=== PATIENT | female | born 1940 | race American Indian/Alaskan Native ===

== ENCOUNTER 2017-11-26 10:57 | Emergency (ER) | payer MEDICARE ==
--- NOTE | 2017-11-26 11:09 | ED PDOC ---
Arrival/HPI - General Time Seen by Provider: 11/26/17 11:04 Historian: EMS - History of Present Illness Narrative History of Present Illness (Text): 11/26/17 10:53 A 75 year old female, whose past medical history includes hypertension, hyperlipidemia, COPD, GERD, and Tubal ligation, is brought in by EMS for cardiac arrest. Per EMS, son and reported patient was found unconsciousness in bathroom and called 911 immediately. Family was uncertain whether patient fell or not but they heard a thumb. Patient was also found to have blood around nares that EMS says could have been from intubation but they are unsure if it was from trauma. EMS says CPR was already in progress on arrival. They gave a total of 6 epi's and regained pulse at one point but arrived in ED with continued CPR in progress.. Limited HPI and ROS due to patient unconscious still and not enough information given by family. Also, patient's son currently on his way to the ER. No PMD Past Medical History - Provider Review Nursing Documentation Reviewed: Yes - Cardiac Hx Hyperlipemia: Yes Hx Hypertension: Yes - Pulmonary Hx Chronic Obstructive Pulmonary Disease (COPD): Yes - Gastrointestinal Hx Gastroesophageal Reflux: Yes - Psychiatric Hx Depression: No Hx Emotional Abuse: No Hx Physical Abuse: No - Surgical History Hx Tubal Ligation: Yes - Suicidal Assessment Feels Threatened In Home Enviroment: No Family/Social History - Physician Review Nursing Documentation Reviewed: Yes Family/Social History: No Known Family HX Allergies/Home Meds Allergies/Adverse Reactions: Allergies No Known Allergies Allergy (Verified 12/19/13 12:12) Home Medications: Home Meds Medication Instructions Recorded Confirmed Aspirin 81 mg PO DAILY 12/19/13 12/19/13 Atorvastatin [Lipitor] 10 mg PO DIN 12/19/13 12/19/13 Insulin Glargine, Recombinan 100 unit SC HS 12/19/13 12/19/13 [Lantus] Insulin Lispro [humALOG] 20 units SC TID 12/19/13 12/19/13 Lansoprazole [Prevacid] 30 mg PO DAILY 12/19/13 12/19/13 Metoprolol Tartrate 200 mg PO BID 12/19/13 12/19/13 Pregabalin [Lyrica] 100 mg PO BID 12/19/13 12/19/13 Sitagliptin Phos/Metformin HCl 1 tab PO BID 12/19/13 12/19/13 [Janumet Xr 1000 mg-50 mg] Telmisartan/Hydrochlorothiazid 1 tab PO HS 12/19/13 12/19/13 [Micardis Hct 25 mg-80 mg] Tolterodine [Detrol LA] 4 mg PO DAILY 12/19/13 12/19/13 Review of Systems - Review of Systems Systems not reviewed;Unavailable: Other (patient currently unconscious and not enough information available at this time) Physical Exam - Systems Exam Head: Present: Normocephalic. No: Atraumatic Pupils: Present: Non-Reactive, Other (4 mm dilated and fixed) Conjunctiva: Present: Normal Ears: Present: Normal, NORMAL TM Nose (External): Present: Atraumatic Nose (Internal): Present: Other (blood in nare(s)) Respiratory/Chest: Present: Rhonchi (with BVM b/l) Cardiovascular: Present: Irregular Rhythm, Bradycardic Abdomen: No: Tenderness, Distention Genitourinary/Pelvic Exam: Present: Normal External Genitalia Back: Present: Normal Inspection Upper Extremity: Present: Normal Inspection Lower Extremity: Present: Edema Neurological: Present: Other (unresponsive to pain or verbal stimuli). No: Speech Normal, Motor Func Grossly Intact, Normal Sensory Function Medical Decision Making ED Course and Treatment: 11/26/17 11:05 Impression: 77 year old female brought in for cardiac arrest. Differential Diagnosis included but are not limited to: Cardiac Arrest; Report of fall r/o ICH r/o Fracture; Glucose elevated r/o DKA; Sepsis Plan: -- EKG -- Chest X-ray -- Labs -- Venous Blood Gas -- IV Fluids -- Blood Culture -- Urine Culture -- Urinalysis -- Serology -- Reassess and disposition Progress Notes: 11/26/2017 10:53 Patient arrives here in ER with CPR in progress. 2 rounds of epi given and regained femoral and carotid pulses. Good breathe sounds with rhonchi b/l with BVM; mildly decreased on left so moved ETT to 21 at lip by therapist. Good IV access obtained by EMS and in the ED. Patient lost pulse again and 1 round of epi given. Pulse regained. 11/26/2017 11:09 Patient's heart rate began going down to 50s BPM. No pulse appreciated. Epi is given. 1 minute compressions are performed. Pulses present after 1 minute of compressions. 11/26/2017 11:24 Chest X-ray IMPRESSION: There is moderate vascular congestion with a perihilar infiltrate consistent with CHF. The endotracheal tube is in satisfactory position. Dictator: Fabrice Belcher MD 11/26/2017 11:28 Patient's heart rate continued to go down into bradycardic. BP dropped to 70 systolic. CPR was initiated and epi x 1 was given. Patient had no regain of pulse. Ultrasound showed no cardiac activity. EMS had worked on patient in the field already for about 30-40 minutes with 6 epi's given. Further treatment is futile at this point. Patient has no gag reflex and pupils are fixed and dilated. Patient has no PMD. Time of 11:28. ME and Organ Donation called by RN. EKG at 11:07 - Sinus Hollis at 55 bpm with nonspecific intraventricular block EKG at 11:20 - Sinus Hollis at 52 bpm with nonspecific intraventricular block 11/26/17 12:07 Maliha Chanel, son, arrived to the ED with . Son states that he spoke to his mother this morning and she was complaining of feeling hot all over. Then he received a call saying she was going to the hospital. Son was informed of her and was given time to ask questions. PMD is Dr. Melton. 11/26/17 12:13 certificate started. Discussed case with Dr. Melton who was informed that she and time of . He will complete the certificate. - Critical Care Critical Care Minutes: 60 minutes - RAD Interpretation Radiology Orders: 11/26/17 11:05 CHEST PORTABLE [RAD] Stat - Medication Orders Current Medication Orders: Sodium Chloride (Sodium Chloride 0.9%) 1,000 mls @ 150 mls/hr IV .[id number] FRANSISCO - Scribe Statement The provider has reviewed the documentation as recorded by the Keziaibraina Delacruz Provider Scribe Attestation: All medical record entries made by the Scribe were at my direction and personally dictated by me. I have reviewed the chart and agree that the record accurately reflects my personal performance of the history, physical exam, medical decision making, and the department course for this patient. I have also personally directed, reviewed, and agree with the discharge instructions and disposition. Disposition/Present on Arrival - Present on Arrival Any Indicators Present on Arrival: No History of DVT/PE: No History of Uncontrolled Diabetes: No Urinary Catheter: No History Surgical Site Infection Following: None - Disposition Have Diagnosis and Disposition been Completed?: Yes Diagnosis: Cardiac arrest Disposition: WITH WITHOUT AUTOPSY Disposition Time: 11:28 Patient Problems: Current Active Problems Problem Status Onset Cardiac arrest Acute Condition: [facility] - Follow up with primary
[2017-11-26] MEDS ORDERED: Sodium Chloride 0.9% 1,000 ML IV SCH (11:15)
--- NOTE | 2017-11-26 11:26 | RAD ---
HISTORY: Sepsis Patient COMPARISON: 12/19/2013 FINDINGS: LUNGS: There is moderate vascular congestion with a perihilar infiltrate consistent with CHF. The endotracheal tube is in satisfactory position PLEURA: No significant pleural effusion identified, no pneumothorax apparent. CARDIOVASCULAR: Normal. OSSEOUS STRUCTURES: No significant abnormalities. VISUALIZED UPPER ABDOMEN: Normal. OTHER FINDINGS: None. IMPRESSION: There is moderate vascular congestion with a perihilar infiltrate consistent with CHF. The endotracheal tube is in satisfactory position
[2017-11-26] MEDS ORDERED: NOREPINEPHRINE BIT/0.9 % NACL 4 MG/250 ML BAG IV ONE (11:27)
[2017-11-26 12:21] VITALS: BMI 47.0
[2017-11-26 12:22] VITALS: BP 145/107; PULSE 86; RESP 16; O2SAT 996
--- NOTE | 2017-11-27 13:02 | CARD ---
APPROVED REPORT EKG Measurement Heart [id number] <Conclusion> Atrial fibrillation with slow ventricular response Nonspecific intraventricular block Cannot rule out Anterior infarct, age undetermined STTW changes c/w ischemia
== END 2017-11-26 13:30 ==
LOC: ED 10:57
DX: I46.9 Cardiac arrest, cause unspecified (principal); I10 Essential (primary) hypertension; J44.9 Chronic obstructive pulmonary disease, unspecified; E78.5 Hyperlipidemia, unspecified; K21.9 Gastro-esophageal reflux disease without esophagitis
CPT/HCPCS: 71045; 93005; 96360; 99283; J7040